=== PATIENT | male | born 1955 | race Two or more races ===

== ENCOUNTER 2024-10-27 18:10 | Emergency (ER) | payer MEDICARE, MEDICAID, SELFPAY ==
[2024-10-27 18:50] VITALS: BP 106/84; PULSE 88; PULSE 94; RESP 16; TEMP 36.8; O2SAT 100; O2SAT 95
[2024-10-27 18:53] VITALS: BMI 25.7
--- NOTE | 2024-10-27 19:07 | XR_ITS ---
Examination: CT chest, without intravenous contrast. CT abdomen, without intravenous contrast. CT pelvis, without intravenous contrast. 2-D sagittal and coronal reconstructions. 3-D reconstructions. Date and time of exam:October 27, 2024 1952 hours INDICATIONS: Injury to the chest and abdomen today, chest pain abdomen pain CTDI vol (mgy) 8.24 DLP (MGycm)581 Technique: Multiple CT images, 3.0 mm slice thickness, obtained chest, abdomen, pelvis, with the high-resolution 64 slice scanner.. Sagittal and coronal 2-D reconstructions are obtained. 3-D reconstructions Low dose protocols were performed. One or more of the following dose reduction techniques were used; automated exposure control, adjustment of the mA and/or KV according to patient size, use of iterative reconstruction technique. Findings: Thoracic aorta pulmonary arteries appear intact on this noncontrast study No pneumothorax pulmonary contusion or hemothorax Sternum intact No thoracic or lumbar vertebral body compression fracture Old appearing deformity right clavicle Acute fractures right third, fourth, fifth, sixth, seventh ribs anteriorly without significant displacement Cirrhosis of the liver nodular in contour, no focal liver splenic lacerations Cholelithiasis Aorta intact, negative for pneumoperitoneum Normal appendix No free fluid in the abdomen or pelvis Urinary bladder is intact Fat-containing inguinal hernias Hips bones of the pelvis intact IMPRESSION: Multiple acute right-sided rib fractures. Thoracic aorta pulmonary arteries intact No hemopericardium, pneumothorax, pulmonary contusion or hemothorax No abdominal parenchymal laceration Abdominal aorta intact. No free blood in the abdomen or pelvis
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
--- NOTE | 2024-10-27 19:07 | XR_ITS ---
Examination: Forearm, left, 2 views. Technique: Forearm, AP, lateral 2 views Date and time of exam: October 27, 2024, 1824 hours INDICATIONS: Injury to the forearm today, forearm pain. FINDINGS: Orthopedic hardware olecranon No acute fracture Soft tissue vascular calcification IMPRESSION: No acute fracture
--- NOTE | 2024-10-27 19:07 | XR_ITS ---
Examination: CT cervical spine without contrast 2-D sagittal reconstructions 2-D coronal reconstructions 3-D reconstructions. Exam date and time:October 27, 2024 at 1946 hours INDICATIONS: Injury to the neck today, neck pain CTDI:vol (mGy) 12.7 DLP: (mGycm) 273 Technique: Multiple 2 mm axial sections of the cervical spine have been obtained. The coronal and sagittal reconstructions have been obtained. 3-D reconstructions have been obtained. Low dose protocols were performed. One or more of the following dose reduction techniques were used; automated exposure control, adjustment of the mA and/or KV according to patient size, use of iterative reconstruction technique. Findings: Severe patient motion Nondiagnostic study IMPRESSION: Severe patient motion Nondiagnostic study
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
[2024-10-27] MEDS: ACETAMINOPHEN 500 MG TABLET 1000 MG PO (19:36)
[2024-10-27] MEDS: cephALEXin 250 MG CAPSULE 500 MG PO (19:36)
[2024-10-27] MEDS: DIPHTH,PERTUSS(ACELL),TET VAC 0.5 ML SYR- ADULT IMi (19:38)
[2024-10-27 21:48] VITALS: BP 133/76; PULSE 69; RESP 17; TEMP 36.9; O2SAT 99
[2024-10-27] MEDS: KETOROLAC INJ 60 MG/2 ML VIAL 30 MG IM (22:30)
[2024-10-27 23:26] VITALS: BP 138/76; PULSE 76; RESP 16; TEMP 36.7; O2SAT 98
== END 2024-10-27 23:27 | disposition home or self-care (01) ==
PROVIDERS: Emergency Provider Emergency Medicine
DX: S00.83XA Contusion of other part of head, initial encounter (principal); S22.41XA Multiple fractures of ribs, right side, initial encounter for closed fracture; W55.22XA Struck by cow, initial encounter; Z23 Encounter for immunization; M54.2 Cervicalgia; S01.312A Laceration without foreign body of left ear, initial encounter; M79.632 Pain in left forearm
CPT/HCPCS: 70450; 70486; 71250; 72125; 73090; 74176; 90471; 90715; 96372; 99284; J1885; A9270